=== PATIENT | female | born 1970 | race Caucasian/White ===

== ENCOUNTER 2019-09-23 10:09 | Outpatient (CLI) | payer BC, SELFPAY ==
--- NOTE | ~2019-09-23 | US_ITS ---
US thyroid INDICATION: Thyroid nodule TECHNIQUE: Real-time sonographic images of the thyroid gland were obtained. COMPARISON: No prior studies for comparison. FINDINGS: The right thyroid lobe measures 5.5 x 1.5 x 1.4 cm. The left thyroid lobe measures 4.8 x 1 .3 x 1.3 cm. There is an oval circumscribed spongiform hypoechoic mass wider than tall, smooth margin s and no calcifications measuring 8 x 6 x 4 mm, TR 2. In the left lobe there is a mixed cystic and so lid hypoechoic mass which is wider than tall, irregular margins and no internal echoes measuring 6 x 4 x 3 mm mm, TR 4. Also in the left lobe there is a slightly hypoechoic mixed solid and cystic mass m easuring 6 x 5 x 6 mm which is wider than tall, ill-defined margins and no calcifications, TR 3. Normal vascular flow is present. IMPRESSION: 1. Bilateral thyroid nodules measuring 8 mm or less, likely benign. Reviewed, dictated and finalized at location B.
== END 2019-09-23 10:10 | disposition home or self-care (01) ==
LOC: CHSIMG 10:13
PROVIDERS: PCP Internal Medicine; Visit Provider Internal Medicine
DX: E04.1 Nontoxic single thyroid nodule (principal)
CPT/HCPCS: 76536

== ENCOUNTER 2019-11-12 14:58 | Outpatient (CLI) | payer BC, SELFPAY ==
--- NOTE | ~2019-11-12 | MM_ITS ---
EXAMINATION: MM screening sukhjinder BI w george HISTORY: Screening TECHNIQUE: Craniocaudal and mediolateral oblique 3-D tomosynthesis images were obtained and synthetic 2-D images were generated. CAD analysis was submitted and interpreted. COMPARISON: Comparison to multiple prior studies sequentially, with oldest reviewed study dated 03/29. BREAST PARENCHYMAL COMPOSITION: There are scattered areas of fibroglandular density. FINDINGS: There is no evidence of suspicious mass, calcification, or architectural distortion to sugg est malignancy in either breast. There has been no suspicious interval change. IMPRESSION: 1. No mammographic evidence of malignancy. 2. Recommend routine screening mammography in one year. BI-RADS Category 1: Negative Reviewed, dictated and finalized at location A.
== END 2019-11-12 14:59 | disposition home or self-care (01) ==
LOC: ANHIMG 15:00
PROVIDERS: PCP Internal Medicine; Visit Provider Obstetrics & Gynecology
DX: Z12.31 Encounter for screening mammogram for malignant neoplasm of breast (principal)
CPT/HCPCS: 77063; 77067

== ENCOUNTER 2020-11-21 14:45 | Outpatient (CLI) | payer BC, SELFPAY ==
--- NOTE | ~2020-11-21 | MM_ITS ---
EXAMINATION: MM screening sukhjinder BI w george HISTORY: Screening TECHNIQUE: Craniocaudal and mediolateral oblique 3-D tomosynthesis images were obtained and synthetic 2-D images were generated. CAD analysis was submitted and interpreted. COMPARISON: Comparison to multiple prior studies sequentially, with oldest reviewed study dated 04/01. BREAST PARENCHYMAL COMPOSITION: There are scattered areas of fibroglandular density. FINDINGS: There is no evidence of suspicious mass, calcification, or architectural distortion to sugg est malignancy in either breast. There has been no suspicious interval change. IMPRESSION: 1. No mammographic evidence of malignancy. 2. Recommend routine screening mammography in one year. BI-RADS Category 1: Negative Reviewed, dictated and finalized at location A.
== END 2020-11-21 14:46 | disposition home or self-care (01) ==
LOC: ANHIMG 14:48
PROVIDERS: PCP Internal Medicine; Visit Provider Obstetrics & Gynecology
DX: Z12.31 Encounter for screening mammogram for malignant neoplasm of breast (principal)
CPT/HCPCS: 77063; 77067

== ENCOUNTER 2021-10-19 14:24 | Outpatient (CLI) | payer BC, SELFPAY ==
--- NOTE | ~2021-10-19 | XR_ITS ---
XR ankle LT min 3V DATE: 10/19/2021 14:42 INDICATION: Left ankle generalized pain. No known injury. TECHNIQUE: 4 views COMPARISON: None FINDINGS: Prominent plantar and mild posterior calcaneal enthesopathy, without associated erosive melba nge or periostitis. No fracture or dislocation of the ankle or disruption of the ankle mortise. No periosteal reaction or bone destruction is detected. IMPRESSION: Plantar and posterior calcaneal enthesopathy Reviewed, dictated and finalized at location B.
== END 2021-10-19 14:25 | disposition home or self-care (01) ==
LOC: CHSIMG 14:26
PROVIDERS: PCP Internal Medicine; Visit Provider Internal Medicine
DX: M25.572 Pain in left ankle and joints of left foot (principal)
CPT/HCPCS: 73610

== ENCOUNTER 2022-01-25 15:49 | Outpatient (CLI) | payer BC, SELFPAY ==
--- NOTE | ~2022-01-25 | MM_ITS ---
EXAMINATION: MM screening sukhjinder BI w george HISTORY: Screening TECHNIQUE: Craniocaudal and mediolateral oblique 3-D tomosynthesis images were obtained and synthetic 2-D images were generated. CAD analysis was submitted and interpreted. COMPARISON: Comparison to multiple prior studies sequentially, with oldest reviewed study dated 05/08. BREAST PARENCHYMAL COMPOSITION: There are scattered areas of fibroglandular density. FINDINGS: There is no evidence of suspicious mass, calcification, or architectural distortion to sugg est malignancy in either breast. There has been no suspicious interval change. IMPRESSION: 1. No mammographic evidence of malignancy. 2. Recommend routine screening mammography in one year. BI-RADS Category 1: Negative Reviewed, dictated and finalized at location A. CTION MOLDING TECHNICIAN
== END 2022-01-25 15:50 | disposition home or self-care (01) ==
PROVIDERS: PCP Internal Medicine; Visit Provider Obstetrics & Gynecology
DX: Z12.31 Encounter for screening mammogram for malignant neoplasm of breast (principal)
CPT/HCPCS: 77063; 77067

== ENCOUNTER 2022-10-18 00:18 | Day surgery (SDC) | payer BC, SELFPAY ==
[2022-10-08 13:38] VITALS: BMI 45.2
[2022-10-18 06:52] VITALS: BP 155/83; PULSE 83; RESP 19; TEMP 36.4; O2SAT 100
[2022-10-18] MEDS: LACTATED RINGERS 1,000 ML 150 ML IV CONT (07:05)
--- NOTE | 2022-10-18 07:49 | P.PNAN_ITS ---
Anes - Initial Pre Proc Eval Procedure: Operation Date: 10/18/22 08:00 Proposed Procedures p Screening Colonoscopy - Brandon Saucedo DO Date/Time: 10/18/22 07:49 Surgeon: Brandon Saucedo DO Pre Op Diagnosis: neoplasm screening Patient Data Age: 51 Gender: F Height: 1.6 m Weight: 118.2 kg Last Vital Signs Temp 97.5 F L 10/18/22 06:52 Pulse 83 10/18/22 06:52 Resp 19 10/18/22 06:52 BP 155/83 H 10/18/22 06:52 Pulse Ox 100 10/18/22 06:52 O2 Del Method Room Air 10/18/22 06:52 Allergies Allergy/AdvReac Type Severity Reaction Status Date / Time Penicillins Allergy Severe Rash Verified 10/18/22 06:51 Sulfa (Sulfonamide Allergy Severe SWELLING Verified 10/18/22 06:51 Antibiotics) Home Medications Medication Instructions Recorded Confirmed Type levocetirizine 5 mg tablet (Xyzal) 5 mg PO DAILY 10/08/22 10/08/22 History lovastatin 20 mg tablet 20 mg PO DAILY 10/08/22 10/08/22 History Patient hx anesthesia problems: none Family hx anesthesia problems: none Results Review: All pre-operative results and documents have been reviewed as part of the pre- operative evaluation. [facility] Social History Social History Smoking status: Never smoker Substance use type: does not use Living arrangements: with family Spiritual care concerns: No Anes - Eval Final PreProcedure Day of Procedure 10/18/22 07:49 Patient weight: morbidly obese Heart: regular rate and rhythm Lungs: clear to auscultation Airway: Mallampati scale class II Neurological: alert and oriented Last oral intake: >/= 8 hours ASA classification: III Emergent: no Anesthetic plan: proceed Anesthesia type and monitoring: general GIVS and standard monitoring Results Review: All pre-operative results and documents have been reviewed as part of the pre- operative evaluation. Informed Consent: The patient's anesthetic plan and its attendant risks and benefits were discussed with the patient/family/POA. Questions were solicited and answers provided to the satisfaction of the patient/family/POA.
--- NOTE | 2022-10-18 07:56 | PM.IMHP ---
H&P: HPI History of Present Illness Date/Time: 10/18/22 07:56 Chief Complaint: screening for colorectal cancer Narrative: this is a 51-year-old woman who presents for colonoscopy. She has never had a colonoscopy before. She denies any hematochezia or melena. She denies any family history of colon cancer. Review of Systems Review of Systems: All systems reviewed & are unremarkable except as noted in HPI and below Constitutional: Constitutional: Denies chills, Denies fever(s), Denies headache(s) and Denies weight loss Eyes: Eyes: Denies change in vision ENT: Denies dizziness, Denies headache(s), Denies neck mass and Denies throat swelling Cardiovascular: Cardiovascular: Denies chest pain, Denies lightheadedness and Denies dyspnea Respiratory: Respiratory: Denies cough, Denies dyspnea and Denies wheezing Gastrointestinal: Gastrointestinal: Denies abdominal pain, Denies change in bowel habits, Denies nausea and Denies vomiting Genitourinary: Genitourinary: Denies hematuria and Denies dysuria Musculoskeletal: Musculoskeletal: Reports as per HPI Integumentary/Breasts: Skin/Breast: Reports as per HPI Neurologic: Denies dizziness and Denies headache(s) Allergic/Immunologic: Allergic/Immunologic: Denies throat swelling and Denies wheezing PMFSH Social History Social History Smoking status: Never smoker Substance use type: does not use Living arrangements: with family Spiritual care concerns: No Meds Home Medications and Allergies Home Medications Medication Instructions Recorded Confirmed Type levocetirizine 5 mg tablet (Xyzal) 5 mg PO DAILY 10/08/22 10/08/22 History lovastatin 20 mg tablet 20 mg PO DAILY 10/08/22 10/08/22 History Allergies Allergy/AdvReac Type Severity Reaction Status Date / Time Penicillins Allergy Severe Rash Verified 10/18/22 06:51 Sulfa (Sulfonamide Allergy Severe SWELLING Verified 10/18/22 06:51 Antibiotics) Vital Signs Vital Signs - 24 hr 10/18/22 06:52 Temperature 36.4 C L Pulse Rate 83 Respiratory Rate 19 Blood Pressure 155/83 H Pulse Oximetry 100 Oxygen Delivery Room Air Exam Const: General: no acute distress and alert Orientation/consciousness: patient oriented x3 HENMT: Head: normocephalic and atraumatic Ears: hearing grossly normal bilaterally Face/Nose/Sinus: Normal nares present Mouth: Yes Normal oral and palatal mucosa present Eyes: Periorbital: periorbital findings normal Sclera: sclerae normal EOM: EOMs intact bilaterally Neck: Neck: normal visual inspection, no lymphadenopathy and trachea midline Chest: Chest palpation & inspection: normal inspection of the chest Resp: Effort & Inspection: normal respiratory effort Auscultation: clear to auscultation bilaterally Cardio: Jugular venous distension: no JVD Rate: regular rate Rhythm: regular rhythm Heart sounds: S1 normal heart sound present and S2 normal heart sound present Peripheral pulses: Peripheral pulses 2+ throughout GI: Inspection: normal to inspection GI Palp: Yes Soft to palpation, No Tenderness to palpation present (GI), No Guarding due to palpation present (GI) and No Rebound tenderness present Percussion: Yes normal to percussion Auscultation: normal bowel sounds : General: Yes no CVA tenderness Back/Spine/Pelvis: Back: no CVA tenderness Neuro: General: patient oriented x3, no focal motor deficits and CN's II-XI intact bilaterally Cognition (Neuro): normal cognition Speech: normal speech Motor exam (neuro): 5/5 motor strength present throughout Extrem: General: capillary refill normal and no clubbing, cyanosis or edema Assessment and Plan Assessment and plan (1) Screening for colorectal cancer: Code(s): Z12.11 - Encounter for screening for malignant neoplasm of colon; Z12.12 - Encounter for screening for malignant neoplasm of rectum Status: Acute Assessment and Plan: I have recommended colonoscopy. I have discussed the pro
[2022-10-18 08:30] VITALS: BP 113/63; PULSE 77; RESP 19; O2SAT 98
[2022-10-18 08:40] VITALS: BP 117/76; PULSE 76; RESP 18; O2SAT 100
[2022-10-18 08:50] VITALS: BP 130/84; PULSE 67; RESP 19; O2SAT 100
== END 2022-10-18 09:00 | disposition home or self-care (01) ==
PROVIDERS: PCP Internal Medicine; Visit Provider Surgery
PROC: 0DJD8ZZ Inspection of Lower Intestinal Tract, Via Natural or Artificial Opening Endoscopic (ICD-10-PCS; CPT 45378; principal; 2022-10-18 08:00)
DX: Z12.11 Encounter for screening for malignant neoplasm of colon (principal); K62.1 Rectal polyp; E66.01 Morbid (severe) obesity due to excess calories; Z68.42 Body mass index [BMI] 45.0-49.9, adult
CPT/HCPCS: 45378; 88305; J2704; J7120

== ENCOUNTER 2022-12-06 13:21 | Outpatient (CLI) | payer BC, SELFPAY ==
--- NOTE | ~2022-12-06 | XR_ITS ---
Left ankle Technique: AP, oblique, and lateral views were obtained. Clinical History: Chronic pain COMPARISON: 1122 Findings: No acute fracture or dislocation is seen. Osseous alignment is anatomic. Ankle mortise and other visualized joint spaces are preserved. Plantar calcaneal spur noted. Mild diffuse soft tissue s welling noted. Impression: No osseous or articular abnormality. Mild diffuse soft tissue swelling. Reviewed, dictated and finalized at location . Impression: No osseous or articular abnormality. Mild diffuse soft tissue swelling.
== END 2022-12-06 13:22 | disposition home or self-care (01) ==
LOC: CHSIMG 13:24
PROVIDERS: PCP Internal Medicine; Visit Provider Internal Medicine
DX: M25.572 Pain in left ankle and joints of left foot (principal); M25.472 Effusion, left ankle
CPT/HCPCS: 73610

== ENCOUNTER 2023-06-12 12:59 | Outpatient (CLI) | payer BC, SELFPAY ==
--- NOTE | ~2023-06-12 | MM_ITS ---
EXAMINATION: MM screening sukhjinder BI w george HISTORY: Screening TECHNIQUE: Craniocaudal and mediolateral oblique 3-D tomosynthesis images were obtained and synthetic 2-D images were generated. CAD analysis was submitted and interpreted. COMPARISON: Comparison to multiple prior studies sequentially, with oldest reviewed study dated 01/09. BREAST PARENCHYMAL COMPOSITION: Not dense: There are scattered areas of fibroglandular density. FINDINGS: There is no evidence of suspicious mass, calcification, or architectural distortion to sugg est malignancy in either breast. There has been no suspicious interval change. IMPRESSION: 1. No mammographic evidence of malignancy. 2. Recommend routine screening mammography in one year. BI-RADS Category 1: Negative Reviewed, dictated and finalized at location A.
== END 2023-06-12 13:00 | disposition home or self-care (01) ==
LOC: ANHIMG 13:01
PROVIDERS: PCP Internal Medicine; Visit Provider Obstetrics & Gynecology
DX: Z12.31 Encounter for screening mammogram for malignant neoplasm of breast (principal)
CPT/HCPCS: 77063; 77067

== ENCOUNTER 2024-10-13 13:42 | Outpatient (CLI) | payer BC, SELFPAY ==
--- NOTE | ~2024-10-13 | MM_ITS ---
EXAMINATION: MM screening sukhjinder BI w george HISTORY: Screening TECHNIQUE: Craniocaudal and mediolateral oblique 3-D tomosynthesis images were obtained and synthetic 2-D images were generated. CAD analysis was submitted and interpreted. COMPARISON: Comparison to multiple prior studies sequentially, with oldest reviewed study dated 11/23. BREAST PARENCHYMAL COMPOSITION: The breasts are almost entirely fatty. FINDINGS: There is no evidence of suspicious mass, calcification, or architectural distortion to sug gest malignancy in either breast. Subareolar masses bilaterally are unchanged. IMPRESSION: 1. No mammographic evidence of malignancy. 2. Recommend routine screening mammography in one year. BI-RADS Category 2: Benign finding(s). Reviewed, dictated and finalized at location B.
--- OUTSIDE RECORDS SUMMARY | 2024-10-13 13:49 | XMS_ITS | Clinical Summary ---
Author Organization 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 Role Phone Unavailable Primary Care Provider Unavailabl e Social History Tobacco Use Types Packs/Day Years Used Date Smoking Tobacco: Never Assessed Comments Unknown Sex and Gender Information Value Date Recorded Sex Assigned at Not on file Legal Sex Female 5:44 PM LINE PILOT Gender Identity Not on file Sexual Orientation Not on file Plan of Treatment Health Maintenance Due Date Last Done Comments Cervical Cancer Screening Pa p Smear (Age 30 to 64) Every 3 Years 1970 Colorectal Cancer Screening Colonoscopy (10 Years) 1970 Annual Physical 1973 Hepatitis C 1988 DTaP, Tdap and Td Vaccines ( 1 - Tdap) 1989 Hepatitis B Vaccines (1 of 3 - 19+ 3-dose series) 1989 Cervical Cancer Screening Pa p with HPV Testing (Age 30 to 64) Every 5 Years 2000 Cervical Cancer Screening with HPV 2000 Mammogram Screening 2010 Pneumococcal Vaccine: 50+ Ye ars (1 of 1 - PCV) 2020 Zoster Vaccines (1 of 2) 2020 COVID-19 Vaccine ( - 2023-2 5 season) 2023 Meningococcal B Vaccine Aged Out No l onger eligible based on patient's age to complete this topic Meningococcal Vaccine Aged Out No jose cruz winston eligible based on patient's age to complete this topic RSV Immunizations Under 20 Months Aged Out No longer eligible based on patient's age to complete this topic
== END 2024-10-13 13:43 | disposition home or self-care (01) ==
LOC: ANHIMG 13:44
PROVIDERS: PCP Internal Medicine; Visit Provider Obstetrics & Gynecology
DX: Z12.31 Encounter for screening mammogram for malignant neoplasm of breast (principal)
CPT/HCPCS: 77063; 77067

== ENCOUNTER 2024-10-26 13:30 | Outpatient (RCR) | payer BC, SELFPAY ==
--- NOTE | 2024-10-26 13:56 | OPREHPOC ---
Outpatient Therapy Plan of Care This is a Multidisciplinary Plan of Care that may contain components documented by all disciplines (PT, OT, and ST.) PT Problem 1 PT Problem #1 Knowledge Deficit PT Goal 1 Goal / Goal Update independent and compliant with HEP Target Visit 4 PT Problem 2 PT Problem #2 Pain PT Goal 1 Goal / Goal Update reduce pain at worst to 6/10 or less Target Visit 8 PT Problem 3 PT Problem #3 Impaired Range of Motion PT Goal 1 Goal / Goal Update achieve 30 degrees active L ankle PF achieve more than 5 degrees active L ankle EV and IV Target Visit 8 PT Problem 4 PT Problem #4 Impaired Strength PT Goal 1 Goal / Goal Update 4/5 or better overall L ankle strength Target Visit 8 PT Problem 5 PT Problem #5 Impaired Functional Mobility PT Goal 1 Goal / Goal Update patient to ambulate with normal stance time and stride length bilaterally. LEFS to display 40% or less functional deficits Target Visit 8
--- NOTE | 2024-10-26 13:56 | PTOPEVAL1 ---
Assessment and note entered by JT File, PT Evaluation Information Assessment Status Evaluation Diagnosis L ankle DJD, OA ICD-10 Condition Codes (PT) Pain in left ankle and joints of left foot M25.572 Onset 10/20/24 Subjective Information patient reports she has been having increased pain in the L ankle since the beginning of this year. she reports she had xray and MRI with the results amounting to OA of the L ankle. she reports she has no seen an ortho, and has not tried orthotics. she reports it does not matter what type of shoes she wears, it will hurt regardless. she reports she has a little bit of pain when she is not on the foot, but has increased pain when up and standing/walking. she reports she works at [employer] where she is on her feet the whole time. Reported Pain Level Pain Score 6: Self Report Assessment PT Clinical Summary mrs. covington is a 53 yo woman who presents to skilled PT services for evaluation and treatment of L ankle pain. she displays signs and symptoms consistent with advanced OA and DJD of the L ankle . she displays reduced rom, weakness, pain with palpation, pain with standing and walking, and collapsing of the L ankle in posture. continued skilled PT is indicated to improve her objective deficits and to work on improving her function, but patient will also benefit from referral to see an ortho sooner rather than later to address conversations regarding surgical needs. Plan of Care Interventions Electrical Stimulation,Gait Training,Hot Pack/Cold Pack,Manual Therapy,Neuro Re-education,Patient/ Caregiver Education,Therapeutic Activities, Therapeutic Exercise PT Services Indicated Yes Treatment Frequency and 2x weekly for 8 visits Duration These treatments will address the objective and functional deficits as defined above. The patient will be advanced safely and appropriately in order for the patient to progress towards his/her prior level of function. Additional exercises will be introduced and as well as a comprehensive home exercise program upon discharge, if needed, ?to ensure carryover of functional gains achieved in the clinic. This treatment plan has been reviewed and agreement upon by the patient.
--- NOTE | 2024-11-19 14:07 | OPREHPOC ---
Outpatient Therapy Plan of Care This is a Multidisciplinary Plan of Care that may contain components documented by all disciplines (PT, OT, and ST.) PT Problem 1 PT Problem #1 Knowledge Deficit PT Goal 1 Goal / Goal Update independent and compliant with HEP Target Visit 4 Progress Met PT Problem 2 PT Problem #2 Pain PT Goal 1 Goal / Goal Update reduce pain at worst to 6/10 or less Target Visit 8 Progress Not Met PT Problem 3 PT Problem #3 Impaired Range of Motion PT Goal 1 Goal / Goal Update achieve 30 degrees active L ankle PF -met achieve more than 5 degrees active L ankle EV and IV -met Target Visit 8 Progress Met PT Problem 4 PT Problem #4 Impaired Strength PT Goal 1 Goal / Goal Update 4/5 or better overall L ankle strength Target Visit 8 Progress Partially Met PT Problem 5 PT Problem #5 Impaired Functional Mobility PT Goal 1 Goal / Goal Update patient to ambulate with normal stance time and stride length bilaterally. -not met LEFS to display 40% or less functional deficits - met Target Visit 8 Progress Partially Met
--- NOTE | 2024-11-19 14:07 | PTOPDC ---
Assessment and note entered by Poppy Cyr, PT Evaluation Information Assessment Status Discharge Diagnosis L ankle DJD, OA ICD-10 Condition Codes (PT) Pain in left ankle and joints of left foot M25.572 Onset 10/20/24 Subjective Information Ivana reports her L ankle pain still comes and goes. She notes increasing pain throughout her work shift at [employer] and she always has increased pain after work. On the weekends when she doesn't have to stand and walk as much, she has minimal pain. She plans to follow up with an plant technical specialist. Reported Pain Level Pain Score 8: Self Report Assessment PT Clinical Summary Ivana Hsieh has completed 8 skilled PT visits for left ankle pain and OA. She is reporting increased pain with prolonged standing/walking which she does for her job at [employer]. She does note less pain overall when she does not have to stand or walk for long periods. She objectively demonstrates improved left ankle AROM and improved left ankle and foot strength. She does still have limitations in inversion and eversion AROM, left ankle strength, antalgic gait, and decreased tolerance for standing and walking. She is being discharged to an independent [facility] and was recommended to make an appointment with an orthopedic surgeon. Plan of Care PT Services Indicated No
== END 2024-11-19 14:49 | disposition home or self-care (01) ==
LOC: CHSPT 13:30
PROVIDERS: PCP Internal Medicine; Visit Provider Internal Medicine
DX: M19.072 Primary osteoarthritis, left ankle and foot (principal)
CPT/HCPCS: 97110; 97140; 97161; 97530; 97750

== ENCOUNTER 2025-02-12 14:38 | Outpatient (CLI) | payer BC, SELFPAY ==
--- NOTE | ~2025-02-12 | XR_ITS ---
[id number] Indication: Lt. sided cervical pain, radiates down Lt. arm into fingers. Comparison: None Findings: Grade 1 anterolisthesis of C4 on C5, no fracture. Moderate loss of disc height C4-5 C5-6. Soft tissues unremarkable Impression: No acute abnormality. Reviewed, dictated and finalized at location P. OR FUND ACCOUNTANT Impression: No acute abnormality.
== END 2025-02-12 14:39 | disposition home or self-care (01) ==
PROVIDERS: PCP Internal Medicine; Visit Provider Internal Medicine
DX: M54.12 Radiculopathy, cervical region (principal)
CPT/HCPCS: 72040